=== PATIENT | male | born 1980 | race Caucasian/White ===

== ENCOUNTER 2016-04-07 13:38 | Observation (INO) | payer OTHER ==
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
[2016-04-07 14:26] LABS: VBG BASE EXCESS 3.6 (-2.0-2.0); VBG CARBOXYHEMOGLOBIN 2.6 % T HGB (0.0-6.9); VBG HCO3- 30.5 meq/L (22-28); VBG HEMOGLOBIN 15.1; VBG O2 SATURATION 59.5 (95-100); VBG pH 7.36 (7.32-7.42)
[2016-04-07] MEDS ORDERED: DUONEB 0.5-3 MG/3 ml Neb IH PRN (16:00)
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
[2016-04-07] MEDS ORDERED: TYLENOL EXTRA STRENGTH 500 MG PO PRN (17:59)
[2016-04-07] MEDS ORDERED: ZOFRAN ODT 4 MG PO PRN (18:00)
[2016-04-07] MEDS: KEPPRA 500 MG PO SCH (21:49)
[2016-04-08 06:59] VITALS: BP 106/53; PULSE 60
[2016-04-08 07:41] VITALS: O2SAT 97
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
[2016-04-08] MEDS: KEPPRA 500 MG PO SCH (08:09)
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
[2016-04-08] MEDS ORDERED: Protonix 40MG Tablet PO SCH (10:00)
== END 2016-04-08 09:45 | disposition home or self-care (01) ==
LOC: ED 13:38 → MED SURG 15:58
PROVIDERS: ADMIT Family Medicine; ATTEND Family Medicine
DX: T59.811A Toxic effect of smoke, accidental (unintentional), initial encounter (principal); J70.5 Respiratory conditions due to smoke inhalation; Y92.009 Unspecified place in unspecified non-institutional (private) residence as the place of occurrence of the external cause; G40.909 Epilepsy, unspecified, not intractable, without status epilepticus; K21.9 Gastro-esophageal reflux disease without esophagitis
CPT/HCPCS: 36000; 36415; 71010; 71020; 82805; 94760; 99284; G0378